=== PATIENT | male | born 2000 | race Two or more races ===

== ENCOUNTER 2023-08-31 18:13 | Emergency (ER) | payer MEDICAID, OTHER ==
[~2023-08-31] VITALS: Ht 162.6 cm; Wt 64.3 kg
[2023-08-31] MEDS ORDERED: HYDROcodone-ACET 10/325MG TAB PO ONE (19:45)
[2023-08-31] MEDS ORDERED: KETOROLAC TROMETH 60MG/2ML VIAL IM ONE (19:45)
[2023-08-31] MEDS ORDERED: ACE3T PO (21:30)
[2023-08-31] MEDS ORDERED: IBUP-1455 PO (21:30)
[2023-08-31] MEDS ORDERED: KETOROLAC TROMETH 30 MG/ML 1ML VIAL ONE (22:42)
[2023-08-31] MEDS ORDERED: HYDROcodone-ACET 10/325MG TAB ONE (22:42)
[2023-08-31 22:48] VITALS: BP 125/76; PULSE 94; RESP 18; TEMP 98.2; O2SAT 100
== END 2023-08-31 23:23 | disposition home or self-care (01) ==
LOC: ER 18:13
DX: S39.012A Strain of muscle, fascia and tendon of lower back, initial encounter (principal); X50.0XXA Overexertion from strenuous movement or load, initial encounter; Y93.89 Activity, other specified; Y92.89 Other specified places as the place of occurrence of the external cause; Y99.8 Other external cause status
CPT/HCPCS: 72100; 96372; 99283; J1885